=== PATIENT | male | born 1950 | race American Indian/Alaskan Native ===

== ENCOUNTER 2017-01-19 09:27 | Outpatient (CLI) | payer MEDICARE ==
[2017-01-19 10:10] LABS: Blood Urea Nitrogen 15 mg/dL (9-20)
--- NOTE | 2017-01-19 12:19 | Cat Scan Report ---
CT abdomen and pelvis with contrast: Cirrhosis. Comparison is made to prior noncontrasted examination in June 2015. Following injection of intravenous contrast and oral contrast transverse images were obtained from the lower chest to the ischium with coronal and sagittal 2-D reformatted images. Linear areas of bibasilar atelectasis are noted. The gallbladder has been removed. The abdominal organs are not otherwise remarkable. The liver appears to have a normal CT density and normal in size and contour with no focal findings. The spleen is normal in size and contour. A punctate calcification is again noted in the superior left kidney unchanged from prior study. Diverticula are present throughout the colon. No inflammatory lesions noted. Sections carried into the pelvis demonstrate numerous surgical clips in the prostate bed consistent with prostatectomy. No evidence of lytic or blastic bone lesions. Degenerative L3-4 changes. Impressions: 1. There are imaging findings of cirrhosis. 2. Small unchanged left renal calculus.
== END 2017-01-19 09:28 | disposition home or self-care (01) ==
LOC: CT 09:27
PROVIDERS: ATTEND Internal Medicine Gastroenterology
DX: N20.0 Calculus of kidney (principal); K74.60 Unspecified cirrhosis of liver; J98.11 Atelectasis; N28.89 Other specified disorders of kidney and ureter; M47.896 Other spondylosis, lumbar region; Z90.49 Acquired absence of other specified parts of digestive tract
CPT/HCPCS: 36415; 74177; 82565; 84520; Q9967